=== PATIENT | male | born 1985 | race Caucasian/White ===

== ENCOUNTER 2018-11-28 15:13 | Emergency (ER) | payer OTHER ==
[~2018-11-28] VITALS: Ht 177.8 cm; Wt 88.0 kg
[~2018-11-28 15:13] MED LIST: AMBIEN 5 MG TABL5 M1; FLEXERIL PO; IBUPROFEN 600600 M1 PO; IBUPROFEN 800800 MG PO; MOBIC7.5 M1 PO; NORCO 5-325 TA1 EACH PO; ROBAXIN 750 MG750 M1 PO; ULTRAM 50MG TAB50 MG PO; VALIUM5 MG PO
[2018-11-28] MEDS ORDERED: FLEXERIL PO (16:29)
[2018-11-28] MEDS ORDERED: IBUPROFEN 800800 M1 PO (16:29)
[2018-11-28 16:39] VITALS: BP 133/91
== END 2018-11-28 16:38 | disposition home or self-care (01) ==
LOC: M.ERS 15:13
DX: S16.1XXA Strain of muscle, fascia and tendon at neck level, initial encounter (principal); S29.012A Strain of muscle and tendon of back wall of thorax, initial encounter; Z88.6 Allergy status to analgesic agent; V89.2XXA Person injured in unspecified motor-vehicle accident, traffic, initial encounter; Y93.89 Activity, other specified; Y92.89 Other specified places as the place of occurrence of the external cause; Y99.8 Other external cause status

== ENCOUNTER → 2019-01-07 | Outpatient (CLI) | payer OTHER ==
[~2019-01-07] MED LIST changes: +IBUPROFEN 800800 M1 PO
== END ==
LOC: M.ULTRA 10:30
DX: R19.7 Diarrhea, unspecified (principal); R11.10 Vomiting, unspecified; R10.11 Right upper quadrant pain

== ENCOUNTER → 2019-02-04 | Outpatient (CLI) | payer OTHER | LOC: M.CT 10:54 | DX: K44.9 Diaphragmatic hernia without obstruction or gangrene (principal); N28.89 Other specified disorders of kidney and ureter ==